=== PATIENT | female | born 1985 | race Caucasian/White ===

== ENCOUNTER 2018-10-14 00:19 | Inpatient (IN) | payer OTHER ==
[~2018-10-14 00:19] MED LIST: Acetaminophen 325 MG Tab PO PRN; Carboprost Tromethamine 250 MCG/1 ML Amp IM PRN; Lactated Ringers 500 ML IV ONE; Lidocaine 1% 30 ML SDV INJECT PRN; Methylergonovine 0.2 MG/1 ML Amp IM PRN; Misoprostol 25 MCG (1/4 of 100 MCG) Tab VAG PRN; Misoprostol 400 MCG (4 X 100 MCG TAB) RECTAL PRN; Ondansetron 4 MG/2 ML SDV IV PRN; Oxytocin/Normal Saline 30 UNIT/500 ML BAG IV SCH; Sodium Chloride 0.9% 10 ML Syringe FLUSH PRN; Tranexamic Acid 1,000 MG in Sodium Chloride 0.9% 100 ML IV PRN
[2018-10-14] MEDS: Lactated Ringers 1,000 ML IV SCH ×4 (08:30→20:37)
[2018-10-14] MEDS ORDERED: Nalbuphine 10 MG/1 ML Vial IM STA ×2 (09:24→11:40)
--- NOTE | 2018-10-14 09:36 | PN ---
DATE: 10/14/2018 SUBJECTIVE: The patient is breathing through her contractions, wanting to be upright. OBJECTIVE: Vital Signs: heart tones in the 150s with accelerations noted. Genitourinary: Tocometer reveals contractions every 1-1/2 to 2 minutes. She did receive 1 dose of Cytotec earlier this morning. None thereafter. Vaginal exam reveals her to be 5 cm, 100% effaced, -1 to -2 station, vertex suspected. Artificial rupture of membranes done after discussion with the patient yielding clear fluid. Bulging bag of water was noted as well with this. ASSESSMENT: 1. Intrauterine at 40 and 2/7 weeks, confirmed with 9 and 1/7 week ultrasound. 2. GBS negative. 3. G2, P0-1-0-1. PLAN: We will continue to follow clinically and closely. I did discuss pain control. The patient wishes for something IV or IM in the near future. [facility] /[id number]
--- NOTE | 2018-10-14 09:48 | OBOUT ---
DATE: 10/14/2018 TIME: 0040 hours to 0100. REASON FOR NST: 1. Intrauterine at 40 weeks confirmed with 9-02/11 week ultrasound. 2. GBS negative. 3. History of labor with pPROM, given progesterone during this . 4. G2, P 0-1-0-1. NST INTERPRETATIONS: During this time period, heart tone baseline is approximately 135 and there are at least two 15 x 15 beat per minute accelerations making this strip reactive. It is also noted to be reassuring. Tocometer reveals potential of 3 to 4 contractions during this time period, minimally felt by patient. ASSESSMENT: 1. Nonstress test-reactive and reassuring. 2. Tocometer with contractions. PLAN: Please see H and P done in conjunction with the Epic and scanned through [employer] with update sticker to be attached. Blood pressure 98/70, heart rate 76, and temp 97. Plan: Shortly after this NST was performed, Cytotec will be placed and we will continue to follow clinically and closely. The patient understands and agrees with the above treatment plan. Before Cytotec had been placed, verbal and written consent were obtained in regard to her Cytotec and further options. [facility] /[id number]
[2018-10-14] MEDS ORDERED: fentaNYL 100 MCG/2 ML SDV IVPUSH ONE (14:53)
[2018-10-14] MEDS ORDERED: Acetaminophen/oxyCODONE 325-5 MG Tab PO PRN (17:06)
[2018-10-14] MEDS ORDERED: diphenhydrAMINE 50 MG/ML SDV IVPUSH PRN (17:06)
[2018-10-14] MEDS ORDERED: ceFAZolin 2 GM in Premix Bag 1 BAG IV ONE (17:06)
[2018-10-14] MEDS ORDERED: Citric Acid/Sodium Citrate Solution 30 ML Cup PO ONE (17:06)
[2018-10-14] MEDS ORDERED: ePHEDrine 50 MG/ML SDV IVPUSH PRN (17:06)
[2018-10-14] MEDS ORDERED: Naloxone 2 MG/2 ML Syringe IVPUSH PRN (17:06)
[2018-10-14] MEDS ORDERED: Ketorolac 30 MG/ML SDV IVPUSH SCH (17:15)
[2018-10-14] MEDS ORDERED: Oxytocin/Normal Saline 60 UNIT/1,000 ML BAG ONE (17:19)
[2018-10-14] MEDS: Simethicone 80 MG Tab.Chew PO SCH (21:16)
[2018-10-15] MEDS: Ketorolac 30 MG/ML SDV IVPUSH SCH ×3 (00:05→12:13)
[2018-10-15] MEDS: Lactated Ringers 1,000 ML IV SCH (05:57)
[2018-10-15] MEDS: Simethicone 80 MG Tab.Chew PO SCH ×4 (10:41→20:05)
[2018-10-15] MEDS: Docusate Sodium 100 MG Cap PO PRN ×2 (10:41→20:04)
--- NOTE | 2018-10-15 11:25 | OR ---
DATE: 10/14/2018 PREOPERATIVE DIAGNOSES: 1. Intrauterine , 40 and 2/7 weeks, confirmed with 9 and 1/7 weeks' ultrasound. 2. Arrest of dilation. 3. Group B Streptococcus negative. 4. History of delivery with premature rupture membranes, given progesterone during this . 5. G2, P0-1-0-1. POSTOPERATIVE DIAGNOSES: 1. Intrauterine , 40 and 2/7 weeks, confirmed with 9 and 1/7 weeks' ultrasound-delivered. 2. Arrest of dilation. 3. Group B Streptococcus negative. 4. History of delivery with premature rupture membranes, given progesterone during this . 5. G2, P0-1-0-1. 6. Nuchal cord x1 and body cord x1, reduced bluntly with delivery. 7. Asynclitic presentation with caput noted. PROCEDURES PERFORMED: NST, followed by Cytotec, artificial rupture of membranes, Pitocin augmentation and IUPC placement, followed by primary low transverse with 2 layer uterine closure. ELECTRONIC TESTER: Genia Madden MD ANESTHESIA: Spinal. ESTIMATED BLOOD LOSS: 300 mL. IV FLUIDS: 800 mL. URINE OUTPUT: 50 mL and clear yellow. START: 1805 hours. UTERINE INCISION: 1807 hours. DELIVERY: 1808 hours. STOP: 1823. FINDINGS: Male, score 8 and 9, weight pending. Asynclitic-type presentation with caput noted as well as nuchal and body cord x1, each reduced bluntly with delivery. DESCRIPTION OF PROCEDURE IN DETAIL: After proper consent was obtained, the patient was brought to the operating room where spinal anesthetic was administered. Kendrick was placed in preop under sterile conditions. Abdomen was prepped and draped in normal sterile fashion with the patient placed in supine position with left lateral tilt. A skin incision was then made over the lower abdomen in a transverse Pfannenstiel-type fashion, and this was carried down to the fascia and scored in the midline. Subcutaneous tissue was raked laterally with Etienne retractors, and fascial incision was extended in transverse fashion using curved Campbell's. Augustine clamps x2 were used to grasp the superior aspect of the fascia and rectus muscles were dissected from the fascia using sharp and blunt technique. In a similar fashion, Augustine clamps x2 were used to grasp the inferior portion of the incision and rectus and pyramidalis muscles were dissected from the fascia using sharp and blunt technique. Rectus muscles were in the midline with blunt technique. Abdominal cavity was entered in blunt technique, and the incision was extended superiorly and inferiorly with blunt technique. Anmol O large retractor was then introduced and used. Vesicouterine peritoneum was identified and incised in transverse fashion with Metzenbaum scissors and bladder flap was made digitally. A curvilinear incision was made on the lower uterine segment at 1808 hours. Uterus was entered sharply. Clear fluid returned. Uterine incision was then extended in transverse fashion using blunt technique. vertex was then delivered through the incision. Noted to be asynclitic in nature with caput noted as well as nuchal cord x1 and body cord x1 reduced bluntly with delivery with delivery of the rest of the infants without difficulty. Mouth and nares were suctioned. Cord was doubly clamped and cut, and infant was brought over to team. Approximately 10 mL of cord blood was then obtained for labs. Placenta then delivered with gentle cord traction and fundal massage. Uterine cavity was cleared of all blood clots and debris with lap sponge. Simpson clamps were used to grasp the uterine incision. This was closed in a running locked fashion and tied at lateral margins with 1-0 Vicryl. Second imbricating layer was then applied with 1-0 Vicryl tied at lateral margins. Right of midline there was minimal bleeding and a tobbkv-gv-tiluq stitch was applied over this area with 1- 0 Vicryl and hemostasis reassured. First inspection of the uterine incision revealed hemostasis. Anmol O retractor was then removed and paracolic gutters were cleared of all blood clots and debris with lap sponge. Anterior cul-de-sac was then irrigated copiously and all blood clots and debris were removed. Second and final inspection of the uterine incision and anterior cul-de-sac revealed hemostasis. Rectus muscles were then reapproximated in the midline with a okhoba-go-pheix stitch using 1-0 Vicryl. Subfascial tissues were found to be hemostatic. Fascia was closed in a running fashion and tied at lateral margins with 0 looped PDS. Subcutaneous tissue was irrigated copiously. Hemostasis was reassured. Skin was reapproximated with medium augustine. Sterile Aquacel dressing was applied. Uterine fundus was firm and massaged at the conclusion of the case at the umbilicus. No immediate complications were noted. Sponge, lap, and needle counts were correct. The patient received 2 g of Ancef preoperatively, Pitocin per protocol, and received Toradol at the conclusion case for pain control. Mother and are currently stable at the time of dictation. [facility] /[id number]
--- NOTE | 2018-10-15 11:58 | PN ---
DATE: 10/14/2018 SUBJECTIVE: The patient is more comfortable after her Nubain 20 mg IM. OBJECTIVE: Vital Signs: Blood pressure 84/45, heart rate is 80, heart tones in the 150s range and reassuring. Tocometer reveals contractions every 1-1/2 to 2 to 3 minutes. Vaginal exam reveals her to be 6 to 7 cm, 100% effaced, -1 to -2 station, vertex suspected, and still leaking copious amounts of clear fluid. ASSESSMENT AND PLAN: Intrauterine at 40 and 2/7 weeks, confirmed with 9 and 1/7 weeks ultrasound, GBS negative, G2, P0-1-0-1, now status post Cytotec 25 mcg x1 and artificial rupture of membranes with continued slow cervical change. We will continue to follow clinically and closely at this point in time. Try positional changes. She just got out of the tub as well. We will treat her pain as needed and follow clinically and closely. [facility] /[id number]
--- NOTE | 2018-10-15 12:07 | PN ---
DATE: 10/14/2018 SUBJECTIVE: The patient is breathing through her contractions, standing for parts of them. OBJECTIVE: heart tones in the 130s to 140s range, appear reassuring. Tocometer reveals contractions every couple of minutes. Pitocin at 4 milliunits per minute. Vaginal exam reveals her to be 6 to 7 cm, 100% effaced, -2 to -3 station, vertex suspected with clear amounts of fluid coming from the vaginal region. IUPC placed after discussion with the patient. ASSESSMENT: Intrauterine at 40 and 2/7 weeks, confirmed with 9 and 1/7 week ultrasound, GBS negative, G2, P0-1-0-1, now status post Cytotec 25 mcg x1, artificial rupture of membranes. Pitocin augmentation currently at 4 milliunits per minute with IUPC just placed. We will continue to follow clinically and closely. She has been at 6 cm since about 11:30, almost 3 hours prior to this dictation, and we will continue to follow clinically and closely at this point in time. [facility] /[id number]
--- NOTE | 2018-10-15 12:16 | PN ---
DATE: 10/14/2018 SUBJECTIVE: The patient is breathing through her contractions. She wanted to get into the tub and did for pain relief and IUPC was pulled at that point in time. She is still breathing through contractions. OBJECTIVE: heart tones in the 150s with what appears to be some early decelerations into the 140s range with contractions. Tocometer reveals contractions every 1-1/2 to 2 minutes apart. Pitocin was at 8 milliunits per minute. Stopped after discussion as below. Vaginal exam is 6 to 7 cm unchanged from previous evaluations, 100% effaced, -2 to -3 station, vertex suspected and caput felt at this point in time. ASSESSMENT AND PLAN: Intrauterine at 40 and 2/7 weeks, confirmed with 9 and /7th week ultrasound, GBS negative, G2, P0-1-0-1, with a less than a centimeter dilation in the last 5.5 hours. I did discuss with the patient options including proceeding with intrathecal versus versus continued following clinically and closely. As there was concern about her pelvis size, baby size, asynclitism as well as caput forming and arrest of dilation, the patient wishes for a . I did discuss with her risks, benefits, alternatives, complications of including, but not limited to, infection, bleeding, damage to internal organs such as bowel, bladder, tubes, uterus, ovaries, sometimes fetus rarely needing a blood transfusion or further surgery, and rarer maternal or . She understands, agrees, and wished to proceed. Verbal and written consent were obtained and questions were answered. We will proceed to the OR as soon as crew is ready and available. We will continue monitoring at this point in time. Pitocin has been stopped. Based on arrest of dilation, we will proceed to as above. Team will take over 0.5 hour to be here to start with the unless we need it faster and then we will proceed with a stat type . The patient understands and agrees with the above treatment plan. Her does too and is present during this discussion. [facility] /[id number]
--- NOTE | 2018-10-15 12:19 | PN ---
DATE: 10/15/2018 Postoperative day #1. SUBJECTIVE: The patient is tolerating p.o. She has not ambulated yet. Kendrick is still in place. Pain is under control. OBJECTIVE: Vital Signs: Temperature 98.2, heart rate 92, blood pressure 89/56, respiratory rate 16. Lungs: Clear to auscultation bilaterally. Heart: S1, S2. Regular rate and rhythm. Pelvic: Firm uterus at the umbilicus. Aquacel dressing is dry and intact. Extremities: SCDs and DERRICK hose are on. LABORATORY DATA: White cell count 12.9, hemoglobin 10.8, platelets 221. ASSESSMENT AND PLAN: 1. Postoperative day #1, status post primary low transverse section. 2. Anemia of acute blood loss. Hemoglobin dropping down to 10.8. We will continue on vitamins. Follow clinically and closely. I did discuss routine cares and goals for today with the patient. She understands and agrees with the above treatment plan. [facility] /[id number]
[2018-10-15] MEDS: Prenatal Multivitamin with Calcium/Folic Acid/Iron Tab PO SCH (13:02)
[2018-10-15] MEDS: Acetaminophen 325 MG Tab PO PRN (15:02)
[2018-10-15] MEDS: Ibuprofen 800 MG Tab PO PRN (20:04)
[2018-10-16] MEDS: Acetaminophen 325 MG Tab PO PRN ×2 (01:31→05:19)
[2018-10-16] MEDS: Ibuprofen 800 MG Tab PO PRN ×3 (03:24→20:17)
[2018-10-16] MEDS: Acetaminophen/oxyCODONE 325-5 MG Tab PO PRN ×4 (08:31→21:53)
[2018-10-16] MEDS: Docusate Sodium 100 MG Cap PO PRN ×2 (08:31→21:52)
[2018-10-16] MEDS: Simethicone 80 MG Tab.Chew PO SCH ×4 (08:31→20:18)
[2018-10-16] MEDS: Prenatal Multivitamin with Calcium/Folic Acid/Iron Tab PO SCH (10:01)
--- NOTE | 2018-10-16 11:33 | PN ---
DATE: 10/16/2018 Postop day #2. SUBJECTIVE: The patient is tolerating p.o., ambulating, urinating, passing flatus. OBJECTIVE: Vital Signs: Temperature 98.5, heart rate 83, blood pressure 103/54, respiratory rate is 18. Lungs: Clear to auscultation bilaterally. Heart: S1, S2. Regular rate and rhythm. Abdomen: Firm uterus at the umbilicus. Aquacel dressing is dry and intact. Extremities: No peripheral edema. No calf pain with DERRICK hose on. ASSESSMENT AND PLAN: Postoperative day #2, status post primary low transverse section with anemia of acute blood loss, hemoglobin dropping down to 10.8 yesterday from predelivery hemoglobin of 11.4. We will continue to follow clinically and closely. Possible discharge tomorrow discussed with the patient. She understands and agrees with the above treatment plan. [facility] /[id number]
[2018-10-16] MEDS ORDERED: ePHEDrine 50 MG/ML SDV IV ONE (16:15)
[2018-10-16] MEDS ORDERED: Phenylephrine 1% 10 MG/ML SDV IV ONE (16:15)
[2018-10-16] MEDS ORDERED: Ketorolac 30 MG/ML SDV IVPUSH ONE (16:15)
[2018-10-16] MEDS ORDERED: Lactated Ringers 1,000 ML IV ONE (16:15)
[2018-10-16] MEDS ORDERED: Morphine PF 1 MG/ML Amp ITHECAL ONE (16:15)
[2018-10-17] MEDS: Acetaminophen/oxyCODONE 325-5 MG Tab PO PRN ×2 (02:11→08:02)
[2018-10-17] MEDS: Ibuprofen 800 MG Tab PO PRN ×2 (04:23→12:00)
[2018-10-17] MEDS: Simethicone 80 MG Tab.Chew PO SCH (09:49)
[2018-10-17] MEDS: Prenatal Multivitamin with Calcium/Folic Acid/Iron Tab PO SCH (09:49)
--- NOTE | 2018-10-18 09:00 | DISCH ---
ADMITTING DIAGNOSES: 1. Intrauterine at 40 and 2/7 weeks, confirmed with 9 and 1/7 weeks' ultrasound. 2. Group B Streptococcus negative. 3. History of delivery with premature rupture of membranes. Given progesterone during this . 4. G2, P0-1-0-1. DISCHARGE DIAGNOSES: 1. Intrauterine at 40 and 2/7 weeks, confirmed with 9 and 1/7 weeks' ultrasound-delivered. 2. Group B Streptococcus negative. 3. History of delivery with premature rupture of membranes. Given progesterone during this . 4. G2, P0-1-0-1. 5. Arrest of dilation. 6. Nuchal cord and body cord x1, reduced bluntly with delivery. 7. Asynclitic presentation. PROCEDURES PERFORMED: NST, Cytotec x1, artificial rupture of membranes, Pitocin augmentation, IUPC placement, followed by primary low-transverse with 2 layer uterine closure, per Dr. Chavez, done on 10/14/2018. HISTORY OF PRESENT ILLNESS: Please see H and P. SUMMARY OF HOSPITAL COURSE: The patient was admitted on the above date with the above diagnoses, underwent the above procedures, went on to have arrest of dilation, with later asynclitic presentation, nuchal cord and body cord x1 reduced bluntly with delivery noted during her primary low-transverse , which was done under a spinal anesthesia with a 2 layer uterine closure, with an EBL 300 mL, which yielded a male with scores of 8 and 9, weighing 8 pounds 4 ounces (3750 g). Postop day 1 and 2, please see progress note. Postop day #3, date of discharge, the patient was tolerating p.o., urinating, passing flatus, requesting discharge. PHYSICAL EXAMINATION: Vital Signs: Last set of vitals updated and listed in the chart. Temperature 98.5, heart rate 68, blood pressure 102/55, respiratory rate 18. Lungs: Clear to auscultation bilaterally. Heart: S1 and S2. Regular rate and rhythm. Abdomen: Firm uterus at the umbilicus. Aquacel dressing dry and intact. Extremities: Trace to 1+ pitting edema to proximal tibia bilaterally and symmetric without calf pain. LABORATORY DATA: On 10/15/2018, day after surgery, hemoglobin was 10.8, compared to predelivery hemoglobin of 11.4. CONDITION ON DISCHARGE COMPARED TO CONDITION ON ADMISSION: Improved. DISCHARGE INSTRUCTIONS: 1. Diet: As tolerated. 2. Activity: No lifting more than 20 pounds. No sit-ups, straining, and pelvic rest for the next 6 weeks with immediate return to fertility discussed with the patient. 3. Reasons to return or go to the emergency room were discussed with the patient in detail including, but not limited to, temperature greater than 100.4, foul-smelling discharge, red hot tender breasts, or increased vaginal bleeding, or increasing pain, drainage, or redness around the incision. DISCHARGE MEDICATIONS: 1. Akwj-gof-ynbbeov Tylenol or ibuprofen for pain. 2. Percocet 5/325 mg 1 to 2 q.6 hours p.r.n., #30, no refills. Discussed use of this medication, adverse and wanted effects as well as precautions with driving. 3. Colace 100 mg b.i.d. p.r.n. for constipation, #60, no refills. FOLLOWUP: On 10/21/2018 for staple removal and with her baby at the same time. I did discuss with the patient in the interim reasons to return or go to the emergency room in regard to her baby as well. She understands and agrees with the above treatment plan. The importance of followup and ramifications of not doing so discussed. [facility] /[id number]
== END 2018-10-17 12:10 | disposition home or self-care (01) | DRG 787 ==
LOC: DL.OBCHECK 00:19 → DL.OB 00:21 → OBSVTOIN 18:08
PROVIDERS: ADMIT Family Medicine; ATTEND Family Medicine
PROC: 10D00Z1 Extraction of Products of Conception, Low, Open Approach (ICD-10-PCS; principal; 2018-10-14)
PROC: 10907ZC Drainage of Amniotic Fluid, Therapeutic from Products of Conception, Via Natural or Artificial Opening (ICD-10-PCS; 2018-10-14)
PROC: 10H07YZ Insertion of Other Device into Products of Conception, Via Natural or Artificial Opening (ICD-10-PCS; 2018-10-14)
PROC: 3E0P7VZ Introduction of Hormone into Female Reproductive, Via Natural or Artificial Opening (ICD-10-PCS; 2018-10-14)
DX: O69.81X0 Labor and delivery complicated by cord around neck, without compression, not applicable or unspecified (principal); D62 Acute posthemorrhagic anemia; O48.0 Post-term pregnancy; O99.02 Anemia complicating childbirth; O62.2 Other uterine inertia; Z37.0 Single live birth; Z3A.40 40 weeks gestation of pregnancy
CPT/HCPCS: 36415; 85027; 86850; 86900; 86901; A9270-GY; J0690; J1885; J2274; J2300; J2370; J2590; J3010; J7120